=== PATIENT | female | born 1980 | race American Indian/Alaskan Native ===

== ENCOUNTER 2017-03-01 16:38 | Emergency (ER) | payer SELFPAY | END 2017-03-01 19:27 | disposition left against medical advice (07) | LOC: DL.ED 16:38 | DX: Z53.21 Procedure and treatment not carried out due to patient leaving prior to being seen by health care provider (principal) ==

== ENCOUNTER 2017-03-01 22:19 | Emergency (ER) | payer SELFPAY ==
[2017-03-01 22:34] VITALS: BP 103/64
--- NOTE | 2017-03-01 22:46 | EDM.PDOC ---
ED HPI GENERAL MEDICAL PROBLEM - General Chief Complaint: ENT Problem Stated Complaint: THROAT PROBLEMS Time Seen by Provider: 03/01/17 22:42 Source of Information: Reports: Patient History Limitations: Reports: No Limitations - History of Present Illness INITIAL COMMENTS - FREE TEXT/NARRATIVE: This 36 yo female patient reports to the ED with a sore throat. The patient reports she has had a sore throat for the past week. The patient reports generalized body aches. The patient has not attempted to be seen in the Clinic. The patient reports she took ibuprofen at about 1000 this morning. The patient reports several other family members have been treated for pneumonia. 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 Throat Pain Score (Numeric/FACES): 8 - Related Data Allergies Allergy/AdvReac Type Severity Reaction Status Date / Time No Known Allergies Allergy Verified 03/01/17 22:34 Home Meds: Home Meds Add Med 09/17/15 [History] Anxiety Med 09/17/15 [History] Depression Med 09/17/15 [History] clonazePAM [Clonazepam] 09/17/15 [History] oxyCODONE HCl/Acetaminophen [oxyCODONE-Acetaminophen 5-325] 1 tab PO Q4H PRN [History] Past Medical History Respiratory History: Reports: Asthma Gastrointestinal History: Reports: GERD Genitourinary History: Reports: 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: Musculoskeletal History: Reports: Arthritis Psychiatric History: Reports: ADD, Anxiety, Depression - Past Surgical History GI Surgical History: Reports: Cholecystectomy Female Surgical History: Reports: Section, Other (See Below) Social & Family History - Family History Family Medical History: Noncontributory - Tobacco Use Smoking Status *Q: Current Every Day Smoker Years of Tobacco use: 5 Packs/Tins Daily: 10 - Caffeine Use Caffeine Use: Reports: Coffee, Soda, Tea - Recreational Drug Use Recreational Drug Use: No Recreational Drug Type: Reports: Marijuana/Hashish - Living Situation & Occupation Living situation: Reports: with Family ED ROS ENT - Review of Systems Review Of Systems: ROS reveals no pertinent complaints other than HPI. ED EXAM, ENT - Physical Exam Exam: See Below Exam Limited By: No Limitations General Appearance: Alert, WD/WN, No Apparent Distress Eye Exam: Bilateral Eye: EOMI, Normal Inspection, PERRL Ears: Normal External Exam, Normal Canal, Hearing Grossly Normal, Normal TMs Nose: Normal Inspection, Normal Mucousa, No Blood Mouth/Throat: Normal Inspection, Normal Gums, Normal Lips, Normal Oropharynx, Normal Teeth Head: Atraumatic, Normocephalic Neck: Normal Inspection, Supple, Non-Tender, Full Range of Motion Respiratory/Chest: No Respiratory Distress, Lungs Clear, Normal Breath Sounds, No Accessory Muscle Use, Chest Non-Tender Cardiovascular: Normal Peripheral Pulses, Regular Rate, Rhythm, No Edema, No Gallop, No JVD, No Murmur, No Rub GI/Abdominal: Normal Bowel Sounds, Soft, Non-Tender, No Organomegaly, No Distention, No Abnormal Bruit, No Mass (Female) Exam: Deferred Rectal (Female) Exam: Deferred Back: Normal Inspection, Full Range of Motion Extremities: Normal Inspection, Normal Range of Motion, Non-Tender, No Pedal Edema, Normal Capillary Refill Neurological: Alert, Oriented, CN II-XII Intact, Normal Cognition, Normal Gait, Normal Reflexes, No Motor/Sensory Deficits Psychiatric: Normal Affect, Normal Mood Skin: Warm, Dry, Intact, Normal Color, No Rash Lymphatic: No Adenopathy Course - Vital Signs Last Recorded V/S: Last Vital Signs Temp 36.6 C 03/01/17 22:23 Pulse 80 03/01/17 22:23 Resp 18 03/01/17 22:23 BP 103/64 03/01/17 22:23 Pulse Ox 100 03/01/17 22:23 - Orders/Labs/Meds Orders: Active Orders 24 hr Category Date Time Status CULTURE STREP A CONFIRMATION [RM] Stat Lab 03/01/17 22:35 Results STREP SCRN A RAPID W CULT CONF [RM] Stat Lab 03/01/17 22:38 Ordered Departure - Departure Time of Disposition: 22:49 Disposition: Home, Self-Care 01 Condition: fair Clinical Impression: Laryngitis - Discharge Information Instructions: Laryngitis, [id number] Forms: ED Department Discharge Care Plan Goals: The patient was advised of the examination and lab results during the visit. The patient was encouraged to continue to use over the counter medications for temporary symptom relief. If the patient has any additional symptoms or concerns , the patient should follow-up with a primary care facility for continued evaluation and treatment. - My Orders Last 24 Hours: My Active Orders 03/01/17 22:35 CULTURE STREP A CONFIRMATION [RM] Stat 03/01/17 22:38 STREP SCRN A RAPID W CULT CONF [RM] Stat - Assessment/Plan Last 24 Hours: My Active Orders 03/01/17 22:35 CULTURE STREP A CONFIRMATION [RM] Stat 03/01/17 22:38 STREP SCRN A RAPID W CULT CONF [RM] Stat
== END 2017-03-01 22:53 | disposition home or self-care (01) ==
LOC: DL.ED 22:19
DX: J04.0 Acute laryngitis (principal); J45.909 Unspecified asthma, uncomplicated; K21.9 Gastro-esophageal reflux disease without esophagitis; M19.90 Unspecified osteoarthritis, unspecified site; F41.9 Anxiety disorder, unspecified; F17.210 Nicotine dependence, cigarettes, uncomplicated; F32.9 Major depressive disorder, single episode, unspecified; Z90.49 Acquired absence of other specified parts of digestive tract; Z98.890 Other specified postprocedural states
CPT/HCPCS: 87081; 87430; 99282; 99283

== ENCOUNTER 2017-06-05 15:25 | Emergency (ER) | payer MEDICAID ==
[2017-06-05 15:31] VITALS: BP 112/56
[2017-06-05] MEDS ORDERED: GI Cocktail Oral Solution 30 ML PO ONE (15:39)
--- NOTE | 2017-06-05 15:42 | EDM.PDOC ---
ED HPI GENERAL MEDICAL PROBLEM - General Chief Complaint: Gastrointestinal Problem Stated Complaint: [id number] CONSTIPATION TOO MUCH LAXITIVE Time Seen by Provider: 06/05/17 15:37 Source of Information: Reports: Patient History Limitations: Reports: No Limitations - History of Present Illness INITIAL COMMENTS - FREE TEXT/NARRATIVE: 36 yo [employer] Female c/o no BM X 5 days. PMHx. Constipation. PSHx. Hysterectomy for Cervical Cancer and Gallbladder removal. Pt. denies N&V Onset Date: 05/31/17 Onset Time: 09:00 Duration: Day(s): Location: Reports: Abdomen Quality: Reports: Pressure Improves with: Reports: None Worsens with: Reports: None Associated Symptoms: Reports: No Other Symptoms Bilateral Lower Abdomen Pain Score (Numeric/FACES): 5 - Related Data Allergies Allergy/AdvReac Type Severity Reaction Status Date / Time No Known Allergies Allergy Verified 06/05/17 15:30 Home Meds: Home Meds Escitalopram [Lexapro] 10 mg PO DAILY 06/05/17 [History] Lisdexamfetamine Dimesylate [Vyvanse] 60 mg PO DAILY 06/05/17 [History] traZODone HCl [Trazodone HCl] 100 mg PO BEDTIME 06/05/17 [History] Past Medical History Respiratory History: Reports: Asthma Gastrointestinal History: Reports: Chronic Constipation, GERD Genitourinary History: Reports: 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: Musculoskeletal History: Reports: Arthritis Psychiatric History: Reports: ADD, Anxiety, Depression - Past Surgical History GI Surgical History: Reports: Cholecystectomy Female Surgical History: Reports: Section, Other (See Below) Social & Family History - Family History Family Medical History: Noncontributory - Tobacco Use Smoking Status *Q: Current Every Day Smoker Years of Tobacco use: 5 Packs/Tins Daily: 10 - Caffeine Use Caffeine Use: Reports: Coffee, Soda, Tea - Recreational Drug Use Recreational Drug Use: No Recreational Drug Type: Reports: Marijuana/Hashish - Living Situation & Occupation Living situation: Reports: with Family ED ROS GENERAL - Review of Systems Review Of Systems: See Below Constitutional: Reports: No Symptoms HEENT: Reports: No Symptoms Respiratory: Reports: No Symptoms Cardiovascular: Reports: No Symptoms Endocrine: Reports: No Symptoms GI/Abdominal: Reports: Abdominal Pain, Constipation : Reports: No Symptoms Musculoskeletal: Reports: No Symptoms Skin: Reports: No Symptoms Neurological: Reports: No Symptoms Psychiatric: Reports: No Symptoms Hematologic/Lymphatic: Reports: No Symptoms Immunologic: Reports: No Symptoms ED EXAM, GI/ABD - Physical Exam Exam: See Below Exam Limited By: No Limitations General Appearance: Alert, WD/WN, No Apparent Distress Eyes: Bilateral: EOMI Ears: Normal External Exam Nose: Normal Inspection Throat/Mouth: Normal Inspection Head: Atraumatic Neck: Normal Inspection Respiratory/Chest: No Respiratory Distress, Lungs Clear Cardiovascular: Normal Peripheral Pulses GI/Abdominal Exam: Tender, Abnormal Bowel Sounds Back Exam: Normal Inspection Extremities: Normal Inspection Neurological: Alert, Oriented, CN II-XII Intact Psychiatric: Normal Affect Skin Exam: Warm, Intact Lymphatic: No Adenopathy Course - Vital Signs Last Recorded V/S: Last Vital Signs Temp 36.4 C 06/05/17 15:31 Pulse 76 06/05/17 15:31 Resp 16 06/05/17 15:31 BP 112/56 L 06/05/17 15:31 Pulse Ox 100 06/05/17 15:31 - Orders/Labs/Meds Orders: Active Orders 24 hr Category Date Time Status Abdomen 2V AP Flat Upright [CR] Urgent Exams 06/05/17 15:38 Taken Meds: Medications Discontinued Medications Generic Name Dose Route Start Last Admin Trade Name Sukhi PRN Reason Stop Dose Admin Al Hydroxide/Mg Hydroxide 30 ml 06/05/17 15:39 06/05/17 15:56 Gi Cocktail PO 06/05/17 15:40 30 ml ONETIME ONE Administration Departure - Departure Time of Disposition: 16:03 Disposition: Home, Self-Care 01 Condition: Good Clinical Impression: Constipation - Discharge Information Forms: ED Department Discharge Additional Instructions: Rest Increase intake of WATER When you get home: 1) FLEETS ENEMA and hold for at least 15mins. 2) Drink one bottle of Citrate of Magnesium 3) Drink 3-5 glasses of room temperture water Increase intake of Fresh Fruits and Vegetables Decrease intake of constipating foods ( Dairy products, Animal products and Processed Foods) F/U w/ PCP for re-evaluation - My Orders Last 24 Hours: My Active Orders 06/05/17 15:38 Abdomen 2V AP Flat Upright [CR] Urgent - Assessment/Plan Last 24 Hours: My Active Orders 06/05/17 15:38 Abdomen 2V AP Flat Upright [CR] Urgent
--- NOTE | 2017-06-05 16:16 | CR ---
Clinical history: 36-year-old female low pain and no bowel movements (5 days). Interpretation: (Flat and upright exam) Surgical clips gallbladder fossa, right upper quadrant. Some stools scattered across course of normal caliber colon but no sign of mechanical bowel obstructi on. No abdominal soft tissue, mass lesion or free intraperitoneal air. (Isolated tiny phlebolith lower pe lvis on the right) Lung bases clear. CONCLUSION: Nonspecific plain film exam abdomen. Cholecystectomy.
== END 2017-06-05 16:16 | disposition home or self-care (01) ==
LOC: DL.ED 15:25
DX: K59.00 Constipation, unspecified (principal); J45.909 Unspecified asthma, uncomplicated; K21.9 Gastro-esophageal reflux disease without esophagitis; F17.210 Nicotine dependence, cigarettes, uncomplicated; Z90.49 Acquired absence of other specified parts of digestive tract; Z79.899 Other long term (current) drug therapy
CPT/HCPCS: 74020; 99284; A9270; 99283

== ENCOUNTER 2018-11-24 18:53 | Emergency (ER) | payer MEDICAID ==
[2018-11-24 19:10] VITALS: BP 130/70
--- NOTE | 2018-11-24 19:58 | EDM.PDOC ---
ED HPI GENERAL MEDICAL PROBLEM - General Chief Complaint: General Stated Complaint: AMBULANCE Time Seen by Provider: 11/24/18 19:20 Source of Information: Reports: Patient, EMS, RN Notes Reviewed History Limitations: Reports: No Limitations - History of Present Illness INITIAL COMMENTS - FREE TEXT/NARRATIVE: c/o not feeling well anxious worried that new medications were interacting. Took Trazodone after and now feeling better. Reports hx of panic attacks. Hx of chronic back pain, recently palced on Robaxin, medrol dose paick and medication for restless legs Back Pain Score (Numeric/FACES): 9 - Related Data Allergies Allergy/AdvReac Type Severity Reaction Status Date / Time No Known Allergies Allergy Verified 11/24/18 19:01 Home Meds: Home Meds traZODone HCl [Trazodone HCl] 50 mg PO BEDTIME 06/05/17 [History] Methocarbamol 750 mg PO QID PRN 11/24/18 [History] Pramipexole [Mirapex] 0.25 mg PO BID 11/24/18 [History] Prazosin [Minpress] 1 mg PO DAILY 11/24/18 [History] busPIRone [Buspar] 15 mg PO BID 11/24/18 [History] methylPREDNISolone [Medrol] See Protocol PO DAILY 11/24/18 [History] Past Medical History Respiratory History: Reports: Asthma Gastrointestinal History: Reports: Chronic Constipation, GERD Genitourinary History: Reports: 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: Musculoskeletal History: Reports: Arthritis Psychiatric History: Reports: ADD, Anxiety, Depression - Past Surgical History GI Surgical History: Reports: Cholecystectomy Female Surgical History: Reports: Section Social & Family History - Family History Family Medical History: Noncontributory - Tobacco Use Smoking Status *Q: Current Every Day Smoker Years of Tobacco use: 15 Packs/Tins Daily: 1 - Caffeine Use Caffeine Use: Reports: Coffee, Soda - Recreational Drug Use Recreational Drug Use: No - Living Situation & Occupation Living situation: Reports: with Family ED ROS GENERAL - Review of Systems Review Of Systems: ROS reveals no pertinent complaints other than HPI. ED EXAM, GENERAL - Physical Exam Exam: See Below Exam Limited By: No Limitations General Appearance: Alert, No Apparent Distress Eye Exam: Bilateral Eye: EOMI, PERRL Ears: Normal External Exam, Hearing Grossly Normal, Normal TMs Nose: Normal Inspection Throat/Mouth: Normal Inspection Head: Atraumatic, Normocephalic Neck: Normal Inspection, Full Range of Motion Respiratory/Chest: No Respiratory Distress, Lungs Clear, Normal Breath Sounds Cardiovascular: Normal Peripheral Pulses, Regular Rate, Rhythm GI/Abdominal: Normal Bowel Sounds (Female) Exam: Normal External Exam Back Exam: Full Range of Motion Extremities: Normal Inspection, Normal Range of Motion Neurological: Alert, Oriented, Normal Cognition Skin Exam: Warm, Dry, Intact, Normal Color Course - Vital Signs Last Recorded V/S: Last Vital Signs Temp 99.1 F 11/24/18 19:09 Pulse 111 H 11/24/18 19:09 Resp 12 11/24/18 19:09 BP 130/70 11/24/18 19:09 Pulse Ox 100 11/24/18 19:09 - Re-Assessments/Exams Free Text/Narrative Re-Assessment/Exam: 11/25/18 05:17 Medications reviewed no significant interactions. Discussed with patient. Steroid at times can increase anxiety. Back pain reported to be chronic and unchanged. Recommend stopping steroid for now and follow with PCP. Departure - Departure Time of Disposition: 19:54 Disposition: Home, Self-Care 01 Condition: Good Clinical Impression: Anxiety Chronic pain Qualifiers: Chronic pain type: chronic pain syndrome Qualified Code(s): G89.4 - Chronic pain syndrome - Discharge Information *PRESCRIPTION DRUG MONITORING PROGRAM REVIEWED*: Not Applicable *COPY OF PRESCRIPTION DRUG MONITORING REPORT IN PATIENT VIRGIE: Not Applicable Instructions: Panic Attack, [id number] Forms: ED Department Discharge Additional Instructions: Stop methylprednisone follow p with primary care avoid energy drinks, caffeine or other stimulating substances
== END 2018-11-24 20:03 | disposition home or self-care (01) ==
LOC: DL.ED 18:53
DX: F41.9 Anxiety disorder, unspecified (principal); G89.4 Chronic pain syndrome; J45.909 Unspecified asthma, uncomplicated; K21.9 Gastro-esophageal reflux disease without esophagitis; F17.210 Nicotine dependence, cigarettes, uncomplicated; Z79.899 Other long term (current) drug therapy
CPT/HCPCS: 99284

== ENCOUNTER 2018-12-26 11:37 | Emergency (ER) | payer MEDICAID ==
[2018-12-26 11:48] VITALS: BP 99/55
--- NOTE | 2018-12-26 11:55 | EDM.PDOC ---
ED HPI GENERAL MEDICAL PROBLEM - General Chief Complaint: Bite:Animal, Insect Stated Complaint: DOG BITE. [id number] Time Seen by Provider: 12/26/18 11:55 Source of Information: Reports: Patient, RN, RN Notes Reviewed History Limitations: Reports: No Limitations - History of Present Illness INITIAL COMMENTS - FREE TEXT/NARRATIVE: Pt presents to ER with c/o be bitten by a dog. She states she was leaving her friends house last night in [place] and an unknown dog to her attacked her and bit her. She states this happened "maybe" around 10-11pm, but she is unsure. Story is very vague. Patient states she is unsure if the dog had an analysis internship or was vaccinated. She is unsure. She states she has not discussed the matter with [facility]. Patient is unsure of when her last tetanus vaccination was. Onset: Sudden Onset Date: 12/25/18 Right Elbow Pain Score (Numeric/FACES): 3 - Related Data Allergies Allergy/AdvReac Type Severity Reaction Status Date / Time No Known Allergies Allergy Verified 12/26/18 11:40 Home Meds: Home Meds traZODone HCl [Trazodone HCl] 50 mg PO BEDTIME 06/05/17 [History] Methocarbamol 750 mg PO QID PRN 11/24/18 [History] Pramipexole [Mirapex] 0.25 mg PO BID 11/24/18 [History] Prazosin [Minpress] 1 mg PO DAILY 11/24/18 [History] busPIRone [Buspar] 15 mg PO BID 11/24/18 [History] methylPREDNISolone [Medrol] See Protocol PO DAILY 11/24/18 [History] Past Medical History HEENT History: Reports: None Cardiovascular History: Reports: None Respiratory History: Reports: Asthma Gastrointestinal History: Reports: Chronic Constipation, GERD Genitourinary History: Reports: 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: Musculoskeletal History: Reports: Arthritis Neurological History: Reports: None Psychiatric History: Reports: ADD, Anxiety, Depression Endocrine/Metabolic History: Reports: None Hematologic History: Reports: None Immunologic History: Reports: None Oncologic (Cancer) History: Reports: None - Infectious Disease History Infectious Disease History: Reports: None - Past Surgical History Head Surgeries/Procedures: Reports: None GI Surgical History: Reports: Cholecystectomy Female Surgical History: Reports: Section Social & Family History - Family History Family Medical History: Noncontributory - Tobacco Use Smoking Status *Q: Current Every Day Smoker Years of Tobacco use: 4 Packs/Tins Daily: 1 - Caffeine Use Caffeine Use: Reports: Energy Drinks, Soda - Recreational Drug Use Recreational Drug Use: No - Living Situation & Occupation Living situation: Reports: with Family ED ROS GENERAL - Review of Systems Review Of Systems: ROS reveals no pertinent complaints other than HPI. ED EXAM, ANIMAL BITE - Physical Exam Exam: See Below Exam Limited By: No Limitations General Appearance: Alert, WD/WN, Mild Distress Eye Exam: Bilateral Eye: EOMI, Normal Inspection Ears: Normal External Exam, Hearing Grossly Normal Nose: Normal Inspection Throat/Mouth: Normal Inspection, Normal Voice, No Airway Compromise Head: Atraumatic, Normocephalic Neck: Normal Inspection, Supple, Non-Tender, Full Range of Motion Respiratory/Chest: No Respiratory Distress, Lungs Clear, Normal Breath Sounds, No Accessory Muscle Use, Chest Non-Tender Cardiovascular: Normal Peripheral Pulses, Regular Rate, Rhythm, No Edema, No Gallop, No JVD, No Murmur, No Rub Peripheral Pulses: 2+: Radial (L), Radial (R) GI/Abdominal: Normal Bowel Sounds, Soft, Non-Tender (Female) Exam: Deferred Rectal (Female) Exam: Deferred Back Exam: Normal Inspection, Full Range of Motion, NT Extremities: Normal Inspection, Normal Range of Motion, Non-Tender, Normal Capillary Refill, No Pedal Edema Neurological: Alert, Oriented, Slow to Respond Psychiatric: Anxious, Flat Affect Skin Exam: Normal Color, Warm/Dry, Ecchymosis (right upper lateral arm. right lateral elbow), Other (abrasion to the lateral right elbow) Lymphadenopathy: Bilateral: No Adenopathy Lymphatic: No Adenopathy Front/Back Body Diagram: 1 - 2cmx1.5cm open wound to the back of the right arm, lateral to the axilla. Fatty tissue noted. Area cleaned with hibiclens and foreign material removed with forceps Course - Vital Signs Last Recorded V/S: Last Vital Signs Temp 97.7 F 12/26/18 11:46 Pulse 70 12/26/18 11:46 Resp 14 12/26/18 11:46 BP 99/55 L 12/26/18 11:46 Pulse Ox 100 12/26/18 11:46 - Orders/Labs/Meds Orders: Active Orders 24 hr Category Date Time Status Vaccines to be Administered [RC] PER UNIT ROUTINE Care 12/26/18 12:09 Active Meds: Medications Discontinued Medications Generic Name Dose Route Start Last Admin Trade Name Sukhi PRN Reason Stop Dose Admin Diphtheria/Tetanus/Acell Pertussis 0.5 ml 12/26/18 12:09 Adacel IM 12/26/18 12:10 .ONCE ONE Rabies Immune Globulin 1,455 unit 12/26/18 12:15 Hyperrab 300 Unit/Ml Vial IM 12/26/18 12:16 .ONCE ONE Rabies Vaccine 2.5 unit 12/26/18 12:04 Rabavert IM 12/26/18 12:05 .ONCE ONE Departure - Departure Time of Disposition: 12:22 Disposition: Home, Self-Care 01 Condition: Fair Clinical Impression: Dog bite Qualifiers: Encounter type: initial encounter Qualified Code(s): W54.0XXA - Bitten by dog, initial encounter - Discharge Information *PRESCRIPTION DRUG MONITORING PROGRAM REVIEWED*: No *COPY OF PRESCRIPTION DRUG MONITORING REPORT IN PATIENT VIRGIE: No Instructions: Animal Bite, [id number] Forms: ED Department Discharge Additional Instructions: Return to the ER for Rabies vaccination series RX: Keflex Keep area clean and covered Follow up with your primary care facility if any signs of infection; redness, swelling, drainage. - My Orders Last 24 Hours: My Active Orders 12/26/18 12:09 Vaccines to be Administered [RC] PER UNIT ROUTINE - Assessment/Plan Last 24 Hours: My Active Orders 12/26/18 12:09 Vaccines to be Administered [RC] PER UNIT ROUTINE
[2018-12-26] MEDS ORDERED: Rabies Vaccine (Avian) 2.5 Unit Inj Kit IM ONE (12:04)
[2018-12-26] MEDS ORDERED: Diphtheria,Pertussis(Acell),Tetanus Vaccine 0.5 ML SDV IM ONE (12:09)
[2018-12-26] MEDS ORDERED: Rabies Immune Globulin/PF 300 UNIT/ML 5 ML SDV IM ONE (12:15)
== END 2018-12-26 13:05 | disposition home or self-care (01) ==
LOC: DL.ED 11:37
DX: S41.151A Open bite of right upper arm, initial encounter (principal); S50.01XA Contusion of right elbow, initial encounter; Z23 Encounter for immunization; F41.9 Anxiety disorder, unspecified; F32.9 Major depressive disorder, single episode, unspecified; F17.210 Nicotine dependence, cigarettes, uncomplicated; K21.9 Gastro-esophageal reflux disease without esophagitis; Z79.899 Other long term (current) drug therapy; W54.0XXA Bitten by dog, initial encounter
CPT/HCPCS: 90375; 90471; 90472; 90675; 90715; 96372; 99282

== ENCOUNTER 2019-06-29 13:23 | Emergency (ER) | payer MEDICAID ==
[2019-06-29 13:39] VITALS: BP 122/65; PULSE 75
--- NOTE | 2019-06-29 13:39 | EDM.PDOC ---
ED HPI GENERAL MEDICAL PROBLEM - General Chief Complaint: Genitourinary Problem Stated Complaint: URINARY TRACK INFECTION PER PT Time Seen by Provider: 06/29/19 13:36 Source of Information: Reports: Patient, Old Records, RN, RN Notes Reviewed History Limitations: Reports: No Limitations - History of Present Illness INITIAL COMMENTS - FREE TEXT/NARRATIVE: Pt presents to ER with c/o painful urination. She thinks she has a UTI. Onset of Sx's a couple of days ago. Denies fever, abdominal or flank pain, radiating pain, N/V/D, or vaginal discharge. Admits to chills, urinary urgency and frequency. Onset: Gradual Duration: Day(s): (2-3), Constant Location: Reports: Other (Urinary) Quality: Reports: Burning, Pressure Severity: Severe Improves with: Reports: None Worsens with: Reports: Other (Urination) Associated Symptoms: Reports: No Other Symptoms Vaginal Pain Score (Numeric/FACES): 8 - Related Data Allergies Allergy/AdvReac Type Severity Reaction Status Date / Time No Known Allergies Allergy Verified 06/29/19 13:39 Home Meds: Home Meds traZODone HCl [Trazodone HCl] 50 mg PO BEDTIME 06/05/17 [History] Prazosin [Minpress] 1 mg PO DAILY 11/24/18 [History] busPIRone [Buspar] 15 mg PO BID 11/24/18 [History] Past Medical History HEENT History: Reports: None Cardiovascular History: Reports: None Respiratory History: Reports: Asthma Gastrointestinal History: Reports: Chronic Constipation, GERD Genitourinary History: Reports: None 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: Musculoskeletal History: Reports: Arthritis Neurological History: Reports: None Psychiatric History: Reports: ADD, Anxiety, Depression Endocrine/Metabolic History: Reports: None Hematologic History: Reports: None Immunologic History: Reports: None Oncologic (Cancer) History: Reports: None - Infectious Disease History Infectious Disease History: Reports: None - Past Surgical History Head Surgeries/Procedures: Reports: None GI Surgical History: Reports: Cholecystectomy Female Surgical History: Reports: Section Social & Family History - Family History Family Medical History: Noncontributory - Caffeine Use Caffeine Use: Reports: Energy Drinks, Soda - Living Situation & Occupation Living situation: Reports: with Family ED ROS GENERAL - Review of Systems Review Of Systems: ROS reveals no pertinent complaints other than HPI. ED EXAM, RENAL/ - Physical Exam Exam: See Below Exam Limited By: No Limitations General Appearance: Alert, WD/WN, No Apparent Distress Throat/Mouth: Normal Inspection, Normal Voice, No Airway Compromise Head: Atraumatic, Normocephalic Respiratory/Chest: No Respiratory Distress, Lungs Clear Cardiovascular: Regular Rate, Rhythm GI/Abdominal: Normal Bowel Sounds, Soft, Non-Tender, No Organomegaly, No Distention, No Abnormal Bruit, No Mass (Female) Exam: Deferred Rectal (Female) Exam: Deferred Back Exam: Normal Inspection. No: CVA Tenderness (L), CVA Tenderness (R) Neurological: Alert, Oriented, No Motor/Sensory Deficits Psychiatric: Normal Mood Skin Exam: Warm, Dry, Intact, Normal Color, No Rash Course - Vital Signs Last Recorded V/S: Last Vital Signs Temp 96 F 06/29/19 13:32 Pulse 75 06/29/19 13:32 Resp 16 06/29/19 13:32 BP 122/65 06/29/19 13:32 Pulse Ox 100 06/29/19 13:32 - Orders/Labs/Meds Orders: Active Orders 24 hr Category Date Time Status CHLAMYDIA AND GONORRHEA BY TMA Routine Lab 06/29/19 13:55 Ordered CULTURE URINE [RM] Stat Lab 06/29/19 13:30 Received HCG QUALITATIVE,URINE [URCHEM] Stat Lab 06/29/19 13:30 Received UA W/MICROSCOPIC [URIN] Stat Lab 06/29/19 13:30 Results Labs: Laboratory Tests 06/29/19 Range/Units 13:30 Urine Color Yellow (YELLOW) Urine Appearance Slightly cloudy (CLEAR) Urine pH 8.0 (5.0-9.0) Ur Specific [place] 1.020 (1.005-1.030) Urine Protein 100 H (NEGATIVE) Urine Glucose (UA) Negative (NEGATIVE) Urine Ketones Negative (NEGATIVE) Urine Occult Blood Moderate H (NEGATIVE) Urine Nitrite Negative (NEGATIVE) Urine Bilirubin Negative (NEGATIVE) Urine Urobilinogen 0.2 (0.2-1.0) mg/dL Ur Leukocyte Esterase Large H (NEGATIVE) Meds: Medications Discontinued Medications Generic Name Dose Route Start Last Admin Trade Name Freq PRN Reason Stop Dose Admin Ciprofloxacin 500 mg 06/29/19 13:55 Ciprofloxacin Hcl PO 06/29/19 13:56 ONETIME ONE Phenazopyridine HCl 190 mg 06/29/19 13:55 Urinary Pain Relief PO 06/29/19 13:56 ONETIME ONE Departure - Departure Time of Disposition: 14:04 Disposition: Home, Self-Care 01 Condition: Good Clinical Impression: UTI (urinary tract infection) Qualifiers: Urinary tract infection type: acute cystitis Hematuria presence: with hematuria Qualified Code(s): N30.01 - Acute cystitis with hematuria - Discharge Information *PRESCRIPTION DRUG MONITORING PROGRAM REVIEWED*: Not Applicable *COPY OF PRESCRIPTION DRUG MONITORING REPORT IN PATIENT VIRGIE: Not Applicable Instructions: Urinary Tract Infection, Adult Forms: ED Department Discharge Additional Instructions: Rx: Cipro 500mg Rx: Pyridium 200mg *Turn urine orange. Drink plenty of water. Follow up in clinic for repeat urine test if not improving in 2 to 3 days. - My Orders Last 24 Hours: My Active Orders 06/29/19 13:30 CULTURE URINE [RM] Stat HCG QUALITATIVE,URINE [URCHEM] Stat UA W/MICROSCOPIC [URIN] Stat 06/29/19 13:55 CHLAMYDIA AND GONORRHEA BY TMA Routine - Assessment/Plan Last 24 Hours: My Active Orders 06/29/19 13:30 CULTURE URINE [RM] Stat HCG QUALITATIVE,URINE [URCHEM] Stat UA W/MICROSCOPIC [URIN] Stat 06/29/19 13:55 CHLAMYDIA AND GONORRHEA BY TMA Routine
[2019-06-29] MEDS ORDERED: Ciprofloxacin 500 MG Tab PO ONE (13:55)
[2019-06-29] MEDS ORDERED: Phenazopyridine 95 MG Tab PO ONE (13:55)
== END 2019-06-29 14:13 | disposition home or self-care (01) ==
LOC: DL.ED 13:23
DX: N30.01 Acute cystitis with hematuria (principal); J45.909 Unspecified asthma, uncomplicated; F32.9 Major depressive disorder, single episode, unspecified; Z79.899 Other long term (current) drug therapy
CPT/HCPCS: 81001; 81025; 87086; 87491; 87591; 99283; A9270; 87088; 87186

== ENCOUNTER 2020-02-19 20:35 | Emergency (ER) | payer MEDICAID, OTHER ==
[2020-02-19] MEDS ORDERED: Acetaminophen/HYDROcodone 325-10 MG Tab PO ONE (20:36)
[2020-02-19 20:54] VITALS: BP 103/62; PULSE 100
[2020-02-19] MEDS ORDERED: Clindamycin HCl 150 MG Cap PO ONE (21:08)
[2020-02-19] MEDS ORDERED: Phenazopyridine 95 MG Tab PO ONE (21:08)
[2020-02-19] MEDS ORDERED: Acetaminophen/HYDROcodone 325-10 MG Tab ONE (21:10)
--- NOTE | 2020-02-19 21:13 | EDM.PDOC ---
ED HPI GENERAL MEDICAL PROBLEM - General Chief Complaint: Genitourinary Problem Stated Complaint: POSSIBLE UTI PER PT Time Seen by Provider: 02/19/20 21:08 Source of Information: Reports: Patient History Limitations: Reports: No Limitations - History of Present Illness INITIAL COMMENTS - FREE TEXT/NARRATIVE: few days h/o UTI Sx and boil between butt cheeks. 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 Lower Back Pain Score (Numeric/FACES): 6 - Related Data Allergies Allergy/AdvReac Type Severity Reaction Status Date / Time No Known Allergies Allergy Verified 02/19/20 20:56 Home Meds: Home Meds traZODone HCl [Trazodone HCl] 50 mg PO BEDTIME 06/05/17 [History] Prazosin [Minpress] 1 mg PO DAILY 11/24/18 [History] busPIRone [Buspar] 15 mg PO BID 11/24/18 [History] Past Medical History HEENT History: Reports: None Cardiovascular History: Reports: None Respiratory History: Reports: Asthma Gastrointestinal History: Reports: Chronic Constipation, GERD Genitourinary History: Reports: None 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: Musculoskeletal History: Reports: Arthritis Neurological History: Reports: None Psychiatric History: Reports: ADD, Anxiety, Depression Endocrine/Metabolic History: Reports: None Hematologic History: Reports: None Immunologic History: Reports: None Oncologic (Cancer) History: Reports: None - Infectious Disease History Infectious Disease History: Reports: None - Past Surgical History Head Surgeries/Procedures: Reports: None GI Surgical History: Reports: Cholecystectomy Female Surgical History: Reports: Section Social & Family History - Family History Family Medical History: Noncontributory - Tobacco Use Smoking Status *Q: Current Every Day Smoker Years of Tobacco use: 2 Packs/Tins Daily: 1 - Caffeine Use Caffeine Use: Reports: Soda - Recreational Drug Use Recreational Drug Use: No - Living Situation & Occupation Living situation: Reports: with Family ED ROS GENERAL - Review of Systems Review Of Systems: Comprehensive ROS is negative, except as noted in HPI. ED EXAM, RENAL/ - Physical Exam Exam: See Below Exam Limited By: No Limitations General Appearance: Alert, WD/WN, Mild Distress, Other (discomfort). No: Active Emesis Ears: Hearing Grossly Normal Throat/Mouth: Normal Voice, No Airway Compromise Head: Atraumatic Neck: Non-Tender, Full Range of Motion Respiratory/Chest: No Respiratory Distress Cardiovascular: Regular Rate, Rhythm GI/Abdominal: Soft, Tender, Other (suprapubic discomfort). No: Distended, Guarding, Rigid, Rebound Neurological: Alert, Oriented, Normal Cognition, Normal Gait, No Motor/Sensory Deficits Psychiatric: Flat Affect Skin Exam: Warm, Dry, Normal Color, Other (boil at buttocks) Lymphatic: No Adenopathy Course - Vital Signs Last Recorded V/S: Last Vital Signs Temp 36.4 C 02/19/20 20:40 Pulse 100 02/19/20 20:40 Resp 19 02/19/20 20:40 BP 103/62 02/19/20 20:40 Pulse Ox 100 02/19/20 20:40 - Orders/Labs/Meds Orders: Active Orders 24 hr Category Date Time Status CULTURE URINE [RM] Stat Lab 02/19/20 20:39 Received Labs: Laboratory Tests 02/19/20 Range/Units 20:39 Urine Color Yellow (YELLOW) Urine Appearance Slightly cloudy (CLEAR) Urine pH 6.0 (5.0-9.0) Ur Specific [place] >= 1.030 (1.005-1.030) Urine Protein Trace H (NEGATIVE) Urine Glucose (UA) Negative (NEGATIVE) Urine Ketones Negative (NEGATIVE) Urine Occult Blood Negative (NEGATIVE) Urine Nitrite Negative (NEGATIVE) Urine Bilirubin Small H (NEGATIVE) Urine Urobilinogen 0.2 (0.2-1.0) mg/dL Ur Leukocyte Esterase Small H (NEGATIVE) Urine RBC 0-5 /HPF Urine WBC 50-75 H (0-5/HPF) /HPF Ur Epithelial Cells Many H (NOT SEEN) /HPF Urine Bacteria Many H (0-FEW/HPF) /HPF Urine Mucus Moderate H (NOT SEEN) /LPF - Re-Assessments/Exams Free Text/Narrative Re-Assessment/Exam: 02/19/20 21:14 results discussed with pt. Departure - Departure Time of Disposition: 21:14 Disposition: Home, Self-Care 01 Condition: Good Clinical Impression: UTI, Urinary tract infectious disease, Boil of buttock - Discharge Information Instructions: Urinary Tract Infection, Adult, [id number] Additional Instructions: 1) drink lots of liquids 2) try hot compress to boil or hot sitz bath 3) follow up at clinic rx given; clindamycin 300mg qid x 40 pyridium 100mg tid prn x 12 Sepsis Event Note - Evaluation Sepsis Screening Result: No Definite Risk - Focused Exam Vital Signs: Vital Signs Temp Pulse Resp BP Pulse Ox 02/19/20 20:40 36.4 C 100 19 103/62 100 Date Exam was Performed: 02/19/20 Time Exam was Performed: 21:08 - My Orders Last 24 Hours: My Active Orders 02/19/20 20:39 CULTURE URINE [RM] Stat - Assessment/Plan Last 24 Hours: My Active Orders 02/19/20 20:39 CULTURE URINE [RM] Stat
== END 2020-02-19 21:19 | disposition home or self-care (01) ==
LOC: DL.ED 20:35
DX: N39.0 Urinary tract infection, site not specified (principal); L02.32 Furuncle of buttock; J45.909 Unspecified asthma, uncomplicated; F41.9 Anxiety disorder, unspecified; F32.9 Major depressive disorder, single episode, unspecified; Z79.899 Other long term (current) drug therapy; F17.210 Nicotine dependence, cigarettes, uncomplicated
CPT/HCPCS: 81001; 87086; 87088; 87186; 99283; A9270-GY

== ENCOUNTER 2021-11-01 04:22 | Emergency (ER) | payer MEDICAID, SELFPAY ==
[2021-11-01] MEDS ORDERED: Albuterol 6.7 GM Inhaler INH ONE (04:55)
[2021-11-01 05:20] LABS: RESPIRATORY SYNCYTIAL VIR NAA NEGATIVE (NEGATIVE)
[2021-11-01 05:21] LABS: CORONAVIRUS COVID-19 NAA POSITIVE (NEGATIVE)
[2021-11-01] MEDS ORDERED: Dexamethasone 4 MG/ML SDV IM ONE (05:29)
[2021-11-01] MEDS ORDERED: Benzonatate 100 MG Cap PO ONE (05:48)
[2021-11-01 06:14] VITALS: BP 97/58; PULSE 94
== END 2021-11-01 06:39 | disposition home or self-care (01) ==
LOC: DL.ED 04:22
DX: U07.1 COVID-19 (principal); J45.909 Unspecified asthma, uncomplicated; F17.210 Nicotine dependence, cigarettes, uncomplicated
CPT/HCPCS: 0241U; 71045; 96372; 99283; A9270; J1100

== ENCOUNTER 2022-02-06 13:34 | Emergency (ER) | payer MEDICAID ==
[2022-02-06 13:44] VITALS: BP 115/72; PULSE 102
[2022-02-06] MEDS ORDERED: cefTRIAXone 500 MG, Lidocaine 1% 1 ML IM ONE ×2 (13:58)
[2022-02-07 16:47] LABS: C.TRACHOMATIS BY TMA Negative (Negative); N.GONORRHOEAE BY TMA Positive (Negative)
== END 2022-02-06 14:45 | disposition home or self-care (01) ==
LOC: DL.ED 13:34
DX: N30.01 Acute cystitis with hematuria (principal); Z72.0 Tobacco use; Z20.2 Contact with and (suspected) exposure to infections with a predominantly sexual mode of transmission
CPT/HCPCS: 81001; 87086; 87491; 87591; 96372; 99283-25; J0696

== ENCOUNTER 2022-03-27 03:45 | Emergency (ER) | payer MEDICAID ==
[2022-03-27 04:13] VITALS: PULSE 96
[2022-03-27] MEDS ORDERED: cefTRIAXone 500 MG, Lidocaine 1% 1 ML IM ONE ×2 (04:28)
[2022-03-27] MEDS ORDERED: Azithromycin 250 MG Tab PO ONE (04:32)
[2022-03-27 04:44] VITALS: BP 94/56
[2022-03-27] MEDS ORDERED: Ketorolac 30 MG/ML SDV IM ONE (04:45)
== END 2022-03-27 04:54 | disposition home or self-care (01) ==
LOC: DL.ED 03:45
DX: N73.9 Female pelvic inflammatory disease, unspecified (principal); F17.210 Nicotine dependence, cigarettes, uncomplicated
CPT/HCPCS: 81001; 81025; 87086; 87088; 87186; 96372; 99284; A9270; J0696; J1885

== ENCOUNTER 2022-03-30 23:54 | Emergency (ER) | payer MEDICAID | END 2022-03-31 03:11 | disposition left against medical advice (07) | LOC: DL.ED 23:54 | DX: Z53.21 Procedure and treatment not carried out due to patient leaving prior to being seen by health care provider (principal) ==

== ENCOUNTER 2022-03-31 14:43 | Emergency (ER) | payer MEDICAID | END 2022-03-31 17:52 | disposition left against medical advice (07) | LOC: DL.ED 14:43 | DX: Z53.21 Procedure and treatment not carried out due to patient leaving prior to being seen by health care provider (principal) ==

== ENCOUNTER 2022-04-01 13:52 | Emergency (ER) | payer MEDICAID ==
[2022-04-01] MEDS ORDERED: Ondansetron 4 MG/2 ML SDV IVPUSH ONE (14:18)
[2022-04-01] MEDS ORDERED: Ketorolac 30 MG/ML SDV IVPUSH ONE (14:18)
[2022-04-01] MEDS ORDERED: Lactated Ringers 1,000 ML IV ONE ×2 (14:18→15:47)
[2022-04-01 14:43] VITALS: BP 116/88; PULSE 104
[2022-04-01 14:55] LABS: ANION GAP 11.3 mEq/L (7-13); CHLORIDE,CL 105 mmol/L (98-107); SODIUM,NA 142 mmol/L (136-145)
[2022-04-01 14:56] LABS: ESTIMATED GFR 74 mL/min (>=60)
[2022-04-01] MEDS ORDERED: Lidocaine 1% 30 ML SDV INJECT ONE (15:50)
[2022-04-01] MEDS ORDERED: Midazolam 1 MG/ML 2 ML SDV IVPUSH ONE (15:50)
[2022-04-01] MEDS ORDERED: Lidocaine 1% 50 MG/5 ML Syringe ONE (15:52)
[2022-04-01] MEDS ORDERED: Lidocaine 2% with EPINEPHrine 1:200,000 20 ML SDV ONE (15:56)
[2022-04-01] MEDS ORDERED: Sulfamethoxazole/Trimethoprim 800-160 MG Tab PO ONE (16:23)
[2022-04-01] MEDS ORDERED: Lidocaine 2% with EPINEPHrine 1:200,000 20 ML SDV INJECT ONE (16:35)
== END 2022-04-01 16:55 | disposition home or self-care (01) ==
LOC: DL.ED 13:52
DX: N75.1 Abscess of Bartholin's gland (principal); F17.210 Nicotine dependence, cigarettes, uncomplicated; Z90.49 Acquired absence of other specified parts of digestive tract; Z20.822 Contact with and (suspected) exposure to COVID-19
CPT/HCPCS: 36415; 56420; 80053; 80307; 83605; 83735; 85025; 86140; 87070; 87075; 87635; 96361; 96374; 96375; 99284; A9270; J1885; J2250; J2405; J7120; U0002

== ENCOUNTER 2022-06-27 06:12 | Emergency (ER) | payer MEDICAID ==
[2022-06-27] MEDS ORDERED: Morphine 4 MG/ML Syringe IM ONE (19:05)
[2022-06-27] MEDS ORDERED: Lidocaine 1% 10 ML MDV IM ONE (20:01)
[2022-06-27] MEDS ORDERED: cefTRIAXone 2 GM Vial IV ONE (20:01)
[2022-06-27] MEDS ORDERED: Acetaminophen/HYDROcodone 325-10 MG Tab PO ONE (20:11)
== END 2022-06-27 20:25 | disposition home or self-care (01) ==
LOC: DL.ED 06:12
DX: N76.2 Acute vulvitis (principal)
CPT/HCPCS: 96372; 99282; A9270; J0696; J2270

== ENCOUNTER 2022-12-20 08:03 | Emergency (ER) | payer MEDICAID ==
[2022-12-20 08:15] VITALS: BP 120/68; PULSE 100
[2022-12-20] MEDS ORDERED: Sodium Chloride 0.9% 1,000 ML IV ONE (08:35)
[2022-12-20] MEDS ORDERED: cefTRIAXone 2 GM Vial IVPUSH ONE (08:35)
[2022-12-20] MEDS ORDERED: Sodium Chloride 0.9% 10 ML Syringe FLUSH PRN (08:35)
[2022-12-20 09:07] LABS: ANION GAP 11.7 mEq/L (7-13)
[2022-12-26 13:47] LABS: C.TRACHOMATIS BY TMA Negative (Negative); N.GONORRHOEAE BY TMA Negative (Negative)
== END 2022-12-20 09:23 | disposition home or self-care (01) ==
LOC: DL.ED 08:03
DX: N30.01 Acute cystitis with hematuria (principal); N76.0 Acute vaginitis; B96.89 Other specified bacterial agents as the cause of diseases classified elsewhere
CPT/HCPCS: 36415; 80053; 81001; 82947; 85025; 87086; 87088; 87186; 87491; 87563; 87591; 96361; 96374; 99283; J0696; J3490; J7030

== ENCOUNTER 2023-05-13 15:16 | Emergency (ER) | payer SELFPAY ==
[2023-05-13 16:17] VITALS: BP 109/66; PULSE 100
== END 2023-05-13 16:32 | disposition home or self-care (01) ==
LOC: DL.ED 15:16
DX: U07.1 COVID-19 (principal); J45.909 Unspecified asthma, uncomplicated
CPT/HCPCS: 71046; 87804; 99283; U0002

== ENCOUNTER 2023-07-11 16:48 | Emergency (ER) | payer MEDICAID | END 2023-07-11 17:10 | disposition left against medical advice (07) | LOC: DL.ED 16:48 | DX: Z53.21 Procedure and treatment not carried out due to patient leaving prior to being seen by health care provider (principal) ==

== ENCOUNTER 2023-08-11 18:43 | Emergency (ER) | payer MEDICAID ==
[2023-08-11] MEDS ORDERED: Sodium Chloride 0.9% 10 ML Syringe FLUSH PRN (19:06)
[2023-08-11 19:13] LABS: BASOPHILS PERCENT AUTO 0.4 % (0.0-1.0); EOSINOPHILS PERCENT AUTO 1.9 % (1.0-3.0); HEMATOCRIT 37.9 % (37.0-47.0); HEMOGLOBIN 12.1 g/dL (12.0-16.0); LYMPHOCYTES PERCENT AUTO 31.6 % (20.5-50.1); MEAN CORPUSCULAR HEMOGLOBIN 30.3 pg (27.0-34.0); MEAN CORPUSCULAR HGB CONC 31.9 g/dL (33.0-35.0); MEAN CORPUSCULAR VOLUME 94.8 fL (80-100); MONOCYTES PERCENT AUTO 5.7 % (2-8); NEUTROPHILS PERCENT AUTO 60.4 % (42.2-75.2); PLATELET COUNT,PLT 354 10^3/uL (150-450); WHITE BLOOD CELL COUNT,WBC 7.8 10^3/uL (5.0-10.0)
[2023-08-11 19:18] VITALS: BP 119/74; PULSE 89
[2023-08-11 19:19] LABS: ANION GAP 11.9 mEq/L (7-13); CALCIUM 8.5 mg/dL (8.5-10.1); CREATININE 0.81 mg/dL (0.55-1.02); EST CRCL DRUG DOSING (CG) 83.08 mL/min; POTASSIUM,K 3.9 mmol/L (3.5-5.1)
[2023-08-11] MEDS ORDERED: Sulfamethoxazole/Trimethoprim 800-160 MG Tab PO ONE (19:35)
[2023-08-11] MEDS ORDERED: Acetaminophen/oxyCODONE 325-5 MG Tab PO ONE (19:36)
[2023-08-11] MEDS ORDERED: Ketorolac 30 MG/ML SDV IVPUSH ONE (19:36)
[2023-08-11 19:53] LABS: APPEARANCE,URINE CLEAR (CLEAR); BILIRUBIN,URINE NEGATIVE (NEGATIVE); COLOR,URINE YELLOW (YELLOW); GLUCOSE,URINE NEGATIVE (NEGATIVE); KETONES,URINE NEGATIVE (NEGATIVE); LEUKOCYTE ESTERASE,URINE TRACE (NEGATIVE); NITRITE,URINE NEGATIVE (NEGATIVE); OCCULT BLOOD,URINE NEGATIVE (NEGATIVE); PH,URINE 7.5 (5.0-9.0); PROTEIN,URINE TRACE (NEGATIVE); UROBILINOGEN,URINE 0.2 mg/dL (0.2-1.0)
[2023-08-11 20:02] LABS: BACTERIA,URINE FEW /HPF (0-FEW/HPF); EPITHELIAL CELLS,URINE FEW /HPF (NOT SEEN); MUCUS,URINE OCCASIONAL /LPF (NOT SEEN); RBC,URINE NOT SEEN /HPF (0-5)
[2023-08-11] MEDS ORDERED: Take Home: Acetaminophen/oxyCODONE 325-5 MG, 5 Tab Pack PO ONE (20:06)
== END 2023-08-11 20:24 | disposition home or self-care (01) ==
LOC: DL.ED 18:43
DX: N30.01 Acute cystitis with hematuria (principal); N93.9 Abnormal uterine and vaginal bleeding, unspecified; F17.210 Nicotine dependence, cigarettes, uncomplicated; Z86.16 Personal history of COVID-19; Z90.710 Acquired absence of both cervix and uterus
CPT/HCPCS: 36415; 80048; 81001; 85025; 87086; 96374; 99283; 99284; A9270; J1885; J3490

== ENCOUNTER 2023-08-23 09:36 | Emergency (ER) | payer MEDICAID ==
[2023-08-23] MEDS ORDERED: Sodium Chloride 0.9% 10 ML Syringe FLUSH PRN (09:52)
[2023-08-23] MEDS ORDERED: Ketorolac 30 MG/ML SDV IVPUSH ONE (09:54)
[2023-08-23] MEDS ORDERED: Sodium Chloride 0.9% 1,000 ML IV ONE (09:54)
[2023-08-23 10:04] LABS: BASOPHILS PERCENT AUTO 0.5 % (0.0-1.0); EOSINOPHILS PERCENT AUTO 2.4 % (1.0-3.0); HEMATOCRIT 34.8 % (37.0-47.0); HEMOGLOBIN 11.3 g/dL (12.0-16.0); LYMPHOCYTES PERCENT AUTO 29.6 % (20.5-50.1); MEAN CORPUSCULAR HEMOGLOBIN 30.4 pg (27.0-34.0); MEAN CORPUSCULAR HGB CONC 32.5 g/dL (33.0-35.0); MEAN CORPUSCULAR VOLUME 93.5 fL (80-100); MONOCYTES PERCENT AUTO 7.2 % (2-8); NEUTROPHILS PERCENT AUTO 60.3 % (42.2-75.2); PLATELET COUNT,PLT 313 10^3/uL (150-450); RED BLOOD CELL COUNT 3.72 10^6/uL (4.2-5.4)
[2023-08-23 10:10] VITALS: BP 109/74; PULSE 87
[2023-08-23 10:27] LABS: A/G RATIO 0.9; ALANINE AMINOTRANSFERASE,ALT 21 U/L (14-59); ALBUMIN 3.6 g/dL (3.4-5.0); ALKALINE PHOSPHATASE 85 U/L (46-116); ANION GAP 12.8 mEq/L (7-13); ASPARTATE AMNIOTRANSFERASE,AST 12 U/L (15-37); BILIRUBIN TOTAL 0.3 mg/dL (0.2-1.0); BLOOD UREA NITROGEN,BUN 16 mg/dL (7-18); BUN/CREATININE RATIO 21.9 (No establ ref range); CALCIUM 8.4 mg/dL (8.5-10.1); CARBON DIOXIDE,CO2 25 mmol/L (21-32); CHLORIDE,CL 103 mmol/L (98-107); CREATININE 0.73 mg/dL (0.55-1.02); EST CRCL DRUG DOSING (CG) 92.18 mL/min; GLUCOSE RANDOM 106 mg/dL (70-99); LIPASE 37 U/L (16-77); POTASSIUM,K 3.8 mmol/L (3.5-5.1); PROTEIN TOTAL,TP 7.5 g/dL (6.4-8.2); SODIUM,NA 137 mmol/L (136-145)
[2023-08-23 10:34] LABS: ESTIMATED GFR 107 mL/min (>=60)
[2023-08-23 10:41] LABS: CORONAVIRUS COVID-19 NAA NEGATIVE (NEGATIVE); INFLUENZA A NAA NEGATIVE (NEGATIVE); INFLUENZA B NAA NEGATIVE (NEGATIVE); RESPIRATORY SYNCYTIAL VIR NAA NEGATIVE (NEGATIVE)
[2023-08-23 10:42] LABS: LACTIC ACID 0.5 mmol/L (0.4-2.0)
[2023-08-23 10:59] LABS: APPEARANCE,URINE SLIGHTLY CLOUDY (CLEAR); BILIRUBIN,URINE NEGATIVE (NEGATIVE); COLOR,URINE YELLOW (YELLOW); GLUCOSE,URINE NEGATIVE (NEGATIVE); KETONES,URINE NEGATIVE (NEGATIVE); LEUKOCYTE ESTERASE,URINE MODERATE (NEGATIVE); NITRITE,URINE NEGATIVE (NEGATIVE); OCCULT BLOOD,URINE TRACE-INTACT (NEGATIVE); PH,URINE 6.5 (5.0-9.0); PROTEIN,URINE NEGATIVE (NEGATIVE); UROBILINOGEN,URINE 0.2 mg/dL (0.2-1.0)
[2023-08-23 11:13] LABS: BACTERIA,URINE MANY /HPF (0-FEW/HPF); EPITHELIAL CELLS,URINE MANY /HPF (NOT SEEN); MUCUS,URINE FEW /LPF (NOT SEEN); RBC,URINE 0-5 /HPF (0-5); WBC,URINE 20-30 /HPF (0-5/HPF)
[2023-08-23] MEDS ORDERED: cefTRIAXone 2 GM Vial IVPUSH ONE (11:22)
== END 2023-08-23 11:40 | disposition home or self-care (01) ==
LOC: DL.ED 09:36
DX: J44.1 Chronic obstructive pulmonary disease with (acute) exacerbation (principal); N73.4 Female chronic pelvic peritonitis; R07.89 Other chest pain; N30.01 Acute cystitis with hematuria; F17.210 Nicotine dependence, cigarettes, uncomplicated; Z20.822 Contact with and (suspected) exposure to COVID-19; Z86.16 Personal history of COVID-19; Z90.710 Acquired absence of both cervix and uterus
CPT/HCPCS: 0241U; 36415; 71045; 80053; 81001; 83605; 83690; 84145; 84484; 85025; 85379; 87081; 87086; 87088; 87186; 87430; 93005; 93010; 96361; 96374; 96375; 99284; 99285-25; J0696; J1885; J3490; J7030

== ENCOUNTER 2023-08-26 22:34 | Emergency (ER) | payer MEDICAID ==
[2023-08-26 23:12] VITALS: BP 113/63; PULSE 93
== END 2023-08-27 00:15 | disposition left against medical advice (07) ==
LOC: DL.ED 22:34
DX: Z53.21 Procedure and treatment not carried out due to patient leaving prior to being seen by health care provider (principal)

== ENCOUNTER 2023-09-28 00:10 | Emergency (ER) | payer MEDICAID ==
[2023-09-28 00:47] VITALS: BP 128/85; PULSE 101
[2023-09-28 01:00] LABS: BASOPHILS PERCENT AUTO 0.2 % (0.0-1.0); EOSINOPHILS PERCENT AUTO 0.8 % (1.0-3.0); HEMATOCRIT 36.5 % (37.0-47.0); HEMOGLOBIN 11.9 g/dL (12.0-16.0); LYMPHOCYTES PERCENT AUTO 27.9 % (20.5-50.1); MEAN CORPUSCULAR HGB CONC 32.6 g/dL (33.0-35.0); MEAN CORPUSCULAR VOLUME 91.9 fL (80-100); MONOCYTES PERCENT AUTO 6.3 % (2-8); NEUTROPHILS PERCENT AUTO 64.8 % (42.2-75.2); PLATELET COUNT,PLT 339 10^3/uL (150-450); RED BLOOD CELL COUNT 3.97 10^6/uL (4.2-5.4)
[2023-09-28 01:23] LABS: INR 0.9 (0.9-1.2); PROTHROMBIN TIME 9.3 SEC (9.0-12.0); PTT,PARTIAL THROMBOPLSTIN TIME 28.1 SEC (22.0-34.0)
[2023-09-28 01:33] LABS: A/G RATIO 0.9; ALANINE AMINOTRANSFERASE,ALT 20 U/L (14-59); ALBUMIN 3.8 g/dL (3.4-5.0); ALKALINE PHOSPHATASE 99 U/L (46-116); ANION GAP 13.7 mEq/L (7-13); ASPARTATE AMNIOTRANSFERASE,AST 11 U/L (15-37); BILIRUBIN TOTAL 0.6 mg/dL (0.2-1.0); BLOOD UREA NITROGEN,BUN 11 mg/dL (7-18); BUN/CREATININE RATIO 12.8 (No establ ref range); C-REACTIVE PROTEIN 2.28 ng/dL (<=0.50); CALCIUM 9.1 mg/dL (8.5-10.1); CARBON DIOXIDE,CO2 25 mmol/L (21-32); CHLORIDE,CL 102 mmol/L (98-107); CREATININE 0.86 mg/dL (0.55-1.02); EST CRCL DRUG DOSING (CG) 78.25 mL/min; GLUCOSE RANDOM 119 mg/dL (70-99); POTASSIUM,K 3.7 mmol/L (3.5-5.1); PROTEIN TOTAL,TP 8.1 g/dL (6.4-8.2); SODIUM,NA 137 mmol/L (136-145); TSH ULTRASENSITIVE 2.22 uIU/mL (0.36-3.74)
[2023-09-28 01:35] LABS: ESTIMATED GFR 88 mL/min (>=60); ETHANOL BLOOD MEDICAL < 3 mg/dL (0)
== END 2023-09-28 03:05 | disposition left against medical advice (07) ==
LOC: DL.ED 00:10
DX: M25.512 Pain in left shoulder (principal)
CPT/HCPCS: 36415; 73030-LT; 80053; 80307; 82607; 83735; 84443; 85025; 85610; 85730; 86140; 99283; 99284

== ENCOUNTER 2024-01-15 09:28 | Emergency (ER) | payer MEDICAID ==
[2024-01-15] MEDS: Sodium Chloride 0.9% 1,000 ML IV ONE ×2 (09:45→11:25)
[2024-01-15 09:54] LABS: BASOPHILS PERCENT AUTO 0.3 % (0.0-1.0); EOSINOPHILS PERCENT AUTO 3.5 % (1.0-3.0); HEMATOCRIT 35.1 % (37.0-47.0); HEMOGLOBIN 11.4 g/dL (12.0-16.0); LYMPHOCYTES PERCENT AUTO 27.5 % (20.5-50.1); MEAN CORPUSCULAR HEMOGLOBIN 30.5 pg (27.0-34.0); MEAN CORPUSCULAR HGB CONC 32.5 g/dL (33.0-35.0); MEAN CORPUSCULAR VOLUME 93.9 fL (80-100); MONOCYTES PERCENT AUTO 7.7 % (2-8); PLATELET COUNT,PLT 292 10^3/uL (150-450); RED BLOOD CELL COUNT 3.74 10^6/uL (4.2-5.4); WHITE BLOOD CELL COUNT,WBC 6.8 10^3/uL (5.0-10.0)
[2024-01-15 10:08] LABS: HCG QUALITATIVE,SERUM NEGATIVE (NEGATIVE)
[2024-01-15 10:14] LABS: ALANINE AMINOTRANSFERASE,ALT 74 U/L (14-59); ALBUMIN 3.3 g/dL (3.4-5.0); ALKALINE PHOSPHATASE 87 U/L (46-116); ANION GAP 13.9 mEq/L (7-13); ASPARTATE AMNIOTRANSFERASE,AST 19 U/L (15-37); BILIRUBIN TOTAL 0.3 mg/dL (0.2-1.0); BLOOD UREA NITROGEN,BUN 18 mg/dL (7-18); BUN/CREATININE RATIO 20.9 (No establ ref range); CALCIUM 7.5 mg/dL (8.5-10.1); CARBON DIOXIDE,CO2 25 mmol/L (21-32); CHLORIDE,CL 105 mmol/L (98-107); CREATININE 0.86 mg/dL (0.55-1.02); EST CRCL DRUG DOSING (CG) 77.46 mL/min; GLUCOSE RANDOM 140 mg/dL (70-99); POTASSIUM,K 3.9 mmol/L (3.5-5.1); PROTEIN TOTAL,TP 6.8 g/dL (6.4-8.2); SODIUM,NA 140 mmol/L (136-145)
[2024-01-15 10:15] LABS: A/G RATIO 0.94; ESTIMATED GFR 87 mL/min (>=60); PROTHROMBIN TIME 10.4 SEC (9.0-12.0)
[2024-01-15 10:17] LABS: LACTIC ACID 0.7 mmol/L (0.4-2.0)
[2024-01-15 10:34] LABS: AMYLASE 52 U/L (25-115); LIPASE 34 U/L (16-77)
[2024-01-15 10:35] VITALS: PULSE 75
[2024-01-15 10:36] VITALS: BP 101/57
[2024-01-15] MEDS: Sodium Chloride 0.9% 10 ML Syringe FLUSH PRN (10:37)
[2024-01-15] MEDS: Iopamidol 612 MG/ML 100 ML Bottle IVPUSH ONE (10:38)
== END 2024-01-15 12:09 | disposition home or self-care (01) ==
LOC: DL.ED 09:28
DX: R10.84 Generalized abdominal pain (principal); J44.9 Chronic obstructive pulmonary disease, unspecified; Z86.16 Personal history of COVID-19; Z90.49 Acquired absence of other specified parts of digestive tract; Z90.710 Acquired absence of both cervix and uterus
CPT/HCPCS: 36415; 74177; 80053; 82150; 82272; 83605; 83690; 83735; 84703; 85025; 85610; 86850; 86900; 86901; 96360; 96361; 99285; J7030; Q9967; 99284; J3490

== ENCOUNTER 2024-01-16 21:12 | Emergency (ER) | payer MEDICAID ==
[2024-01-16 21:42] LABS: APPEARANCE,URINE CLEAR (CLEAR); BILIRUBIN,URINE NEGATIVE (NEGATIVE); COLOR,URINE YELLOW (YELLOW); GLUCOSE,URINE NEGATIVE (NEGATIVE); KETONES,URINE NEGATIVE (NEGATIVE); LEUKOCYTE ESTERASE,URINE NEGATIVE (NEGATIVE); NITRITE,URINE NEGATIVE (NEGATIVE); OCCULT BLOOD,URINE NEGATIVE (NEGATIVE); PROTEIN,URINE NEGATIVE (NEGATIVE); UROBILINOGEN,URINE 0.2 mg/dL (0.2-1.0)
[2024-01-16] MEDS: HYDROmorphone 0.5 MG/0.5 ML Syringe IVPUSH ONE (21:52)
[2024-01-16 21:58] LABS: BASOPHILS PERCENT AUTO 0.4 % (0.0-1.0); EOSINOPHILS PERCENT AUTO 2.1 % (1.0-3.0); HEMATOCRIT 31.9 % (37.0-47.0); HEMOGLOBIN 10.3 g/dL (12.0-16.0); LYMPHOCYTES PERCENT AUTO 26.9 % (20.5-50.1); MEAN CORPUSCULAR HEMOGLOBIN 30.6 pg (27.0-34.0); MEAN CORPUSCULAR HGB CONC 32.3 g/dL (33.0-35.0); MEAN CORPUSCULAR VOLUME 94.7 fL (80-100); MONOCYTES PERCENT AUTO 8.9 % (2-8); NEUTROPHILS PERCENT AUTO 61.7 % (42.2-75.2); PLATELET COUNT,PLT 282 10^3/uL (150-450); RED BLOOD CELL COUNT 3.37 10^6/uL (4.2-5.4); WHITE BLOOD CELL COUNT,WBC 7.8 10^3/uL (5.0-10.0)
[2024-01-16 22:06] VITALS: BP 118/63; PULSE 79
[2024-01-16 22:18] LABS: ALANINE AMINOTRANSFERASE,ALT 60 U/L (14-59); ALBUMIN 3.5 g/dL (3.4-5.0); ALKALINE PHOSPHATASE 111 U/L (46-116); ANION GAP 11.7 mEq/L (7-13); ASPARTATE AMNIOTRANSFERASE,AST 20 U/L (15-37); BILIRUBIN TOTAL 0.2 mg/dL (0.2-1.0); BLOOD UREA NITROGEN,BUN 12 mg/dL (7-18); BUN/CREATININE RATIO 14.6 (No establ ref range); C-REACTIVE PROTEIN < 0.50 ng/dL (<=0.50); CALCIUM 7.3 mg/dL (8.5-10.1); CARBON DIOXIDE,CO2 26 mmol/L (21-32); CHLORIDE,CL 106 mmol/L (98-107); CREATININE 0.82 mg/dL (0.55-1.02); EST CRCL DRUG DOSING (CG) 81.24 mL/min; ESTIMATED GFR 92 mL/min (>=60); GLUCOSE RANDOM 108 mg/dL (70-99); POTASSIUM,K 3.7 mmol/L (3.5-5.1); PROTEIN TOTAL,TP 7.1 g/dL (6.4-8.2); SODIUM,NA 140 mmol/L (136-145)
== END 2024-01-16 22:52 | disposition home or self-care (01) ==
LOC: DL.ED 21:12
DX: R10.31 Right lower quadrant pain (principal); R10.32 Left lower quadrant pain; J44.9 Chronic obstructive pulmonary disease, unspecified; Z86.16 Personal history of COVID-19; Z90.710 Acquired absence of both cervix and uterus
CPT/HCPCS: 36415; 80053; 81003; 85025; 86140; 96374; 99284; J1170; 99283

== ENCOUNTER 2024-02-12 07:53 | Emergency (ER) | payer MEDICAID ==
[2024-02-12 08:05] VITALS: BP 105/58; PULSE 75
[2024-02-12] MEDS: Dexamethasone 4 MG/ML SDV IM ONE (08:12)
== END 2024-02-12 08:18 | disposition home or self-care (01) ==
LOC: DL.ED 07:53
DX: J06.9 Acute upper respiratory infection, unspecified (principal); J45.909 Unspecified asthma, uncomplicated; Z86.16 Personal history of COVID-19; Z90.710 Acquired absence of both cervix and uterus; Z90.49 Acquired absence of other specified parts of digestive tract
CPT/HCPCS: 96372; 99283; 99284; J1100

== ENCOUNTER 2024-03-12 14:09 | Emergency (ER) | payer SELFPAY ==
[2024-03-12 14:35] LABS: APPEARANCE,URINE SLIGHTLY CLOUDY (CLEAR); BILIRUBIN,URINE NEGATIVE (NEGATIVE); COLOR,URINE YELLOW (YELLOW); GLUCOSE,URINE NEGATIVE (NEGATIVE); KETONES,URINE NEGATIVE (NEGATIVE); LEUKOCYTE ESTERASE,URINE SMALL (NEGATIVE); NITRITE,URINE NEGATIVE (NEGATIVE); OCCULT BLOOD,URINE TRACE-INTACT (NEGATIVE); PROTEIN,URINE NEGATIVE (NEGATIVE); UROBILINOGEN,URINE 0.2 mg/dL (0.2-1.0)
[2024-03-12 14:38] VITALS: BP 111/69; PULSE 74
[2024-03-12 14:47] LABS: TRICHOMONAS,URINE PRESENT /HPF (NOT SEEN)
[2024-03-12 14:48] LABS: BACTERIA,URINE MODERATE /HPF (0-FEW/HPF); EPITHELIAL CELLS,URINE MODERATE /HPF (NOT SEEN)
[2024-03-12 14:49] LABS: HYALINE CASTS,URINE FEW; MUCUS,URINE MODERATE /LPF (NOT SEEN)
[2024-03-12] MEDS: cefTRIAXone 1 GM Vial IM ONE (15:41)
== END 2024-03-12 15:53 | disposition home or self-care (01) ==
LOC: DL.ED 14:09
DX: N30.01 Acute cystitis with hematuria (principal); E86.9 Volume depletion, unspecified; J44.9 Chronic obstructive pulmonary disease, unspecified; F17.290 Nicotine dependence, other tobacco product, uncomplicated; Z86.16 Personal history of COVID-19; Z90.49 Acquired absence of other specified parts of digestive tract; Z90.710 Acquired absence of both cervix and uterus
CPT/HCPCS: 81001; 87086; 96372; 99283; J0696

== ENCOUNTER 2024-04-09 18:02 | Emergency (ER) | payer SELFPAY ==
[2024-04-09 18:24] LABS: APPEARANCE,URINE CLOUDY (CLEAR); BILIRUBIN,URINE NEGATIVE (NEGATIVE); COLOR,URINE YELLOW (YELLOW); GLUCOSE,URINE NEGATIVE (NEGATIVE); KETONES,URINE NEGATIVE (NEGATIVE); LEUKOCYTE ESTERASE,URINE LARGE (NEGATIVE); NITRITE,URINE NEGATIVE (NEGATIVE); OCCULT BLOOD,URINE TRACE-INTACT (NEGATIVE); PROTEIN,URINE 30 (NEGATIVE); UROBILINOGEN,URINE 0.2 mg/dL (0.2-1.0)
[2024-04-09 18:35] VITALS: BP 113/73; PULSE 78
[2024-04-09 18:42] LABS: WBC,URINE >100 /HPF (0-5/HPF)
[2024-04-09 18:43] LABS: BACTERIA,URINE MODERATE /HPF (0-FEW/HPF); EPITHELIAL CELLS,URINE MODERATE /HPF (NOT SEEN); MUCUS,URINE RARE /LPF (NOT SEEN); TRICHOMONAS,URINE PRESENT /HPF (NOT SEEN)
[2024-04-09] MEDS: Ciprofloxacin 500 MG Tab PO ONE (18:47)
[2024-04-09] MEDS: metroNIDAZOLE 250 MG Tab PO ONE (18:47)
[2024-04-15 12:41] LABS: C.TRACHOMATIS BY TMA Negative (Negative); M GENITALIUM Negative (Negative); M GENITALIUM SOURCE Urine; N.GONORRHOEAE BY TMA Negative (Negative); SOURCE Urine
== END 2024-04-09 18:54 | disposition home or self-care (01) ==
LOC: DL.ED 18:02
DX: N30.01 Acute cystitis with hematuria (principal); A59.9 Trichomoniasis, unspecified; J44.9 Chronic obstructive pulmonary disease, unspecified; Z86.16 Personal history of COVID-19; Z90.49 Acquired absence of other specified parts of digestive tract; Z90.710 Acquired absence of both cervix and uterus
CPT/HCPCS: 81001; 87086; 87491; 87563; 87591; 99283; A9270; 87088; 87186; 99284

== ENCOUNTER 2024-07-31 16:32 | Emergency (ER) | payer MEDICAID ==
[2024-07-31 16:52] LABS: APPEARANCE,URINE CLEAR (CLEAR); BILIRUBIN,URINE NEGATIVE (NEGATIVE); COLOR,URINE YELLOW (YELLOW); GLUCOSE,URINE NEGATIVE (NEGATIVE); KETONES,URINE NEGATIVE (NEGATIVE); LEUKOCYTE ESTERASE,URINE NEGATIVE (NEGATIVE); NITRITE,URINE NEGATIVE (NEGATIVE); OCCULT BLOOD,URINE TRACE-INTACT (NEGATIVE); PROTEIN,URINE NEGATIVE (NEGATIVE); UROBILINOGEN,URINE 0.2 mg/dL (0.2-1.0)
[2024-07-31 17:03] LABS: BACTERIA,URINE FEW /HPF (0-FEW/HPF); EPITHELIAL CELLS,URINE MODERATE /HPF (NOT SEEN); MUCUS,URINE OCCASIONAL /LPF (NOT SEEN); RBC,URINE 0-5 /HPF (0-5); WBC,URINE 0-5 /HPF (0-5/HPF)
[2024-07-31 17:18] LABS: BASOPHILS PERCENT AUTO 0.4 % (0.0-1.0); EOSINOPHILS PERCENT AUTO 0.7 % (1.0-3.0); HEMATOCRIT 35.2 % (37.0-47.0); HEMOGLOBIN 11.4 g/dL (12.0-16.0); LYMPHOCYTES PERCENT AUTO 27.4 % (20.5-50.1); MEAN CORPUSCULAR HEMOGLOBIN 31.1 pg (27.0-34.0); MEAN CORPUSCULAR HGB CONC 32.4 g/dL (33.0-35.0); MEAN CORPUSCULAR VOLUME 95.9 fL (80-100); MONOCYTES PERCENT AUTO 6.4 % (2-8); NEUTROPHILS PERCENT AUTO 65.1 % (42.2-75.2); PLATELET COUNT,PLT 290 10^3/uL (150-450); RED BLOOD CELL COUNT 3.67 10^6/uL (4.2-5.4); WHITE BLOOD CELL COUNT,WBC 7.3 10^3/uL (5.0-10.0)
[2024-07-31 17:34] VITALS: BP 100/59; PULSE 69
[2024-07-31 17:37] LABS: A/G RATIO 1.2; ALANINE AMINOTRANSFERASE,ALT 14 U/L (14-59); ALBUMIN 3.9 g/dL (3.4-5.0); ALKALINE PHOSPHATASE 67 U/L (46-116); ANION GAP 14.6 mEq/L (7-13); ASPARTATE AMNIOTRANSFERASE,AST 9 U/L (15-37); BILIRUBIN TOTAL 0.5 mg/dL (0.2-1.0); BLOOD UREA NITROGEN,BUN 8 mg/dL (7-18); BUN/CREATININE RATIO 10.4 (No establ ref range); CALCIUM 8.7 mg/dL (8.5-10.1); CARBON DIOXIDE,CO2 25 mmol/L (21-32); CHLORIDE,CL 105 mmol/L (98-107); CREATININE 0.77 mg/dL (0.55-1.02); GLUCOSE RANDOM 99 mg/dL (70-99); POTASSIUM,K 3.6 mmol/L (3.5-5.1); PROTEIN TOTAL,TP 7.2 g/dL (6.4-8.2); SODIUM,NA 141 mmol/L (136-145)
[2024-07-31 17:40] LABS: LACTIC ACID 0.7 mmol/L (0.4-2.0)
[2024-07-31] MEDS: Sodium Chloride 0.9% 10 ML Syringe FLUSH PRN (17:41)
[2024-07-31 17:42] LABS: C-REACTIVE PROTEIN < 0.50 ng/dL (<=0.50); ESTIMATED GFR 99 mL/min (>=60)
[2024-07-31] MEDS: Iopamidol 612 MG/ML 100 ML Bottle IVPUSH ONE (18:01)
[2024-07-31] MEDS: Fluconazole 100 MG Tab PO ONE (19:45)
[2024-07-31] MEDS: Take Home: Nitrofurantoin Monohydrate/Macrocrystalline 100 MG, 6 Cap Pack PO ONE (19:45)
== END 2024-07-31 19:51 | disposition home or self-care (01) ==
LOC: DL.ED 16:32
DX: N83.201 Unspecified ovarian cyst, right side (principal); N30.01 Acute cystitis with hematuria; B37.9 Candidiasis, unspecified; J44.89 Other specified chronic obstructive pulmonary disease; Z86.16 Personal history of COVID-19; Z90.49 Acquired absence of other specified parts of digestive tract; Z90.710 Acquired absence of both cervix and uterus
CPT/HCPCS: 36415; 74177; 80053; 81001; 83605; 85025; 86140; 87040; 99284; A9270-GY; J3490; Q9967

== ENCOUNTER 2025-04-24 09:10 | Emergency (ER) | payer SELFPAY ==
[2025-04-24 10:08] VITALS: PULSE 69
[2025-04-24 10:10] LABS: APPEARANCE,URINE SLIGHTLY CLOUDY (CLEAR); GLUCOSE,URINE NEGATIVE (NEGATIVE); OCCULT BLOOD,URINE NEGATIVE (NEGATIVE)
[2025-04-24 10:11] LABS: BASOPHILS PERCENT AUTO 0.3 % (0.0-1.0); EOSINOPHILS PERCENT AUTO 1.8 % (1.0-3.0); LYMPHOCYTES PERCENT AUTO 16.2 % (20.5-50.1); MONOCYTES PERCENT AUTO 7.3 % (2-8); NEUTROPHILS PERCENT AUTO 74.4 % (42.2-75.2); PLATELET COUNT,PLT 330 10^3/uL (150-450); RED BLOOD CELL COUNT 3.86 10^6/uL (4.2-5.4); WHITE BLOOD CELL COUNT,WBC 7.1 10^3/uL (5.0-10.0)
[2025-04-24 10:30] LABS: A/G RATIO 1.1; ALANINE AMINOTRANSFERASE,ALT 18.0 U/L (14-59); ASPARTATE AMNIOTRANSFERASE,AST 11.0 U/L (15-37); BILIRUBIN TOTAL 0.4 mg/dL (0.2-1.0); BLOOD UREA NITROGEN,BUN 18.0 mg/dL (7-18); CARBON DIOXIDE,CO2 28.0 mmol/L (21-32); CHLORIDE,CL 104.0 mmol/L (98-107); CREATININE 0.71 mg/dL (0.55-1.02); EST CRCL DRUG DOSING (CG) 92.88 mL/min; GLUCOSE RANDOM 100.0 mg/dL (70-99); POTASSIUM,K 4.2 mmol/L (3.5-5.1); PROTEIN TOTAL,TP 8.0 g/dL (6.4-8.2); SODIUM,NA 140.0 mmol/L (136-145)
[2025-04-24 10:31] LABS: ESTIMATED GFR 109.0 mL/min (>=60)
[2025-04-24] MEDS: Iopamidol 612 MG/ML 100 ML Bottle IVPUSH ONE (11:29)
[2025-04-24 11:38] VITALS: BP 102/51
[2025-04-24] MEDS: Take Home: metroNIDAZOLE 250 MG Tab, 8 Tab Pack PO SCH (13:06)
[2025-04-24] MEDS: Take Home: Ciprofloxacin HCl 500 MG, 6 Tab Pack PO ONE (13:06)
[2025-04-27 11:47] LABS: C.TRACHOMATIS BY TMA Negative (Negative); N.GONORRHOEAE BY TMA Negative (Negative)
== END 2025-04-24 13:15 | disposition home or self-care (01) ==
LOC: DL.ED 09:10
DX: K52.9 Noninfective gastroenteritis and colitis, unspecified (principal); Z86.16 Personal history of COVID-19
CPT/HCPCS: 36415; 74177; 80053; 81003; 81025; 85025; 87210; 87491; 87591; 99284; A9270; Q9967